=== PATIENT | male | born 1985 | race African-American/Black ===

== ENCOUNTER 2016-12-27 16:24 | Emergency (ER) | payer OTHER, SELFPAY ==
[2016-12-27] MEDS ORDERED: HYDROcodone/Acetaminophen 5/325 mg Tablet ONE (16:45)
== END 2016-12-27 16:49 | disposition home or self-care (01) ==
LOC: BURERS 16:24
DX: S39.012A Strain of muscle, fascia and tendon of lower back, initial encounter (principal); F17.210 Nicotine dependence, cigarettes, uncomplicated; V40.9XXA Unspecified car occupant injured in collision with pedestrian or animal in traffic accident, initial encounter
CPT/HCPCS: 99283

== ENCOUNTER → 2019-02-13 | Emergency (ER) | payer SELFPAY | LOC: BURERS 21:56 | DX: J06.9 Acute upper respiratory infection, unspecified (principal); F17.210 Nicotine dependence, cigarettes, uncomplicated | CPT/HCPCS: 99281 ==